=== PATIENT | female | born 1960 | race Caucasian/White ===

== ENCOUNTER 2021-07-20 19:32 | Emergency (ER) | payer OTHER, SELFPAY ==
--- NOTE | ~2021-07-20 | XR_ITS ---
EXAMINATION: LEFT HAND AND WRIST CLINICAL INFORMATION: Trauma. Pain. COMPARISON: None TECHNIQUE: 3 views FINDINGS: There is a fracture of the distal radius. This is an intra-articular fracture through the mid articular surface and extends into the metaphysis. There is slight displacement of fracture fragment. There is advanced degenerative joint disease of the first metacarpal carpal joint XR/XR hand wrist LT IMPRESSION: Intra-articular fracture of distal radius.
[2021-07-20 19:50] VITALS: BP 138/75; PULSE 87; RESP 20; TEMP 36.7; O2SAT 97; BMI 55.0
--- NOTE | 2021-07-20 22:35 | ED.EXTPRO ---
HPI - Extremity Problem General Chief complaint: Extremity Injury, Upper Stated complaint: ?wrist fracture Time Seen by Provider: 07/20/21 22:35 History of Present Illness HPI Narrative: Patient complains of left wrist pain after a fall, went to urgent care where x-ray showed a fracture and was told to go to the ER for splinting and referral to an orthopedist Patient denies any other injury no other complaints, no numbness weakness or tingling Related Data Previous Rx's Medication Instructions Recorded oxycodone 5 mg tablet 5 mg PO Q6H PRN #14 tab 07/20/21 Allergies Allergy/AdvReac Type Severity Reaction Status Date / Time No Known Allergies Allergy Verified 07/20/21 19:49 Review of Systems Review of Systems: Positive for left wrist pain Negatives are no dizziness no weakness no fainting no feeling faint no headache no head injury no neck pain no numbness weakness or tingling no chest pain or rib pain no back pain no muscle weakness no loss of sensation Yes all other systems are reviewed and are negative [facility] Past Medical History Source: nursing notes reviewed Medical History (Updated 07/21/21 @ 00:01 by Ro Allen) No active medical problems Social History Social History Advance Directives: No Advance Directives Information Provided: Yes Patient : No Physical Exam Vital Signs: Vital Signs: Last Vital Signs Temp 98.0 F 07/20/21 19:50 Pulse 87 07/20/21 19:50 Resp 20 07/20/21 19:50 BP 138/75 07/20/21 19:50 Pulse Ox 97 07/20/21 19:50 Body Mass Index 55.0 General appearance no acute distress Head is normocephalic atraumatic Neck supple nontender Respiratory no distress The back full range of motion Extremities the right wrist head dorsal tenderness and swelling no obvious deformity, skin was intact and neurovascular intact distal Other extremities normal Neuro no focal motor sensory deficits Course Course Course Narrative: X-ray of the left wrist showed a non intra-articular fracture of the distal radius with minimal displacement A volar splint was placed and I contacted the orthopedic physician shipping and receiving assistant who agreed the patient could be followed next week and patient was discharged Discharge Plan Discharge Clinical Impression: Fracture of wrist Patient Disposition: Home, Self-Care Additional Instructions: Follow with orthopedist for further evaluation best plan of care Keep the splint dry Return any time any worse condition or any concerns Prescriptions: New oxycodone 5 mg tablet 5 mg PO Q6H PRN (Reason: pain) Qty: 14 RF: 0 Referrals: Pacheco Jenkins MD [Physician] - 2 days (Wrist fracture) Tyrese Mitchell PA-C [Physician [employer]] - 2 days (Left wrist fracture) Interventions: ED Discharge Assessment Last Done: 07/20/21 23:27 Discharge Date/Time: 07/20/21 23:29
--- NOTE | 2021-07-20 23:26 | PC.NURSE ---
VOLAR SPLINT ORDER BY EVER HOLM. SPLINT PLACED TO LEFT WRIST CHECK BY EVER HOLM.
== END 2021-07-20 23:29 | disposition home or self-care (01) ==
PROVIDERS: Emergency Provider Emergency Medicine; PCP Internal Medicine
DX: S52.572A Other intraarticular fracture of lower end of left radius, initial encounter for closed fracture (principal); W19.XXXA Unspecified fall, initial encounter; Y93.9 Activity, unspecified; Y92.9 Unspecified place or not applicable; Y99.9 Unspecified external cause status
CPT/HCPCS: 29125; 73110; 73130; 99283; 99284

== ENCOUNTER 2021-07-25 05:59 | Outpatient (REF) | payer OTHER, SELFPAY ==
--- NOTE | ~2021-07-25 | XR_ITS ---
EXAMINATION: XR WRIST, LEFT CLINICAL INFORMATION: Pain. COMPARISON: Left hand and wrist radiographs dated 07/20/2021 TECHNIQUE: PA, lateral, and oblique views of the left wrist. FINDINGS: Redemonstration of a mildly displaced radial styloid fracture in unchanged anatomic alignment. No dislocation. Severe joint space narrowing with subchondral sclerosis and large marginal osteophytes redemonstrated at the 1st carpometacarpal joint. No new osseous erosion. No abnormal soft tissue calcification. XR/XR wrist LT min 3V IMPRESSION: Radial styloid fracture in unchanged anatomic alignment. Severe 1st carpometacarpal osteoarthritis.
== END 2021-07-25 06:00 | disposition home or self-care (01) ==
LOC: HO.HOSX 05:59
PROVIDERS: Visit Provider Physician Assistant
DX: S52.502A Unspecified fracture of the lower end of left radius, initial encounter for closed fracture (principal)
CPT/HCPCS: 29125; 73110; 99202

== ENCOUNTER 2021-08-01 12:06 | Day surgery (SDC) | payer OTHER, SELFPAY ==
[2021-08-01] VITALS (9 sets, daily range): BP systolic 102–143; BP diastolic 62–95; PULSE 69–85; RESP 15–18; TEMP 36.3–36.6; O2SAT 94–100; BMI 53.1
--- NOTE | ~2021-08-01 | FL_ITS ---
EXAMINATION: XR FLUOROSCOPY WITH IMAGES CLINICAL INFORMATION: Reduction distal radial fracture. COMPARISON: Radiographs left breast 07/25/2021, 07/20/2021 TECHNIQUE: Fluoroscopy performed by Dr. Yoanna Lema. Fluoroscopy time: 34 seconds DAP: 21.489 mGycm2 Images: 6 FINDINGS: Distal radial fracture is reduced with volar side plate and multiple screws. Fracture fragments are in near-anatomic alignment. The ulnar variance is near neutral. The hardware is intact. No dislocation. FL/FL guidance in OR IMPRESSION: Status post open reduction internal fixation distal radial fracture. Hardware intact. Near-anatomic alignment.
--- NOTE | 2021-08-01 14:40 | PC.NURSE ---
PATIENT BROUGHT OVER TO PACU AND REPORT GIVEN TO ITAGO HARRIS. PT REMAINS AWAKE, ALERT/ORIENTED X'S 3 WITHOUT COMPLAINT AT THIS TIME.
--- NOTE | 2021-08-01 16:25 | MHC.SHP ---
Pre-Procedural Eval Section A Date of Service: 08/01/21 The patient is an INPATIENT: No Changes since office visit: No Cold of Flu in the past 2 weeks, No New Medical Problems, No Changes in Medication and No Patient answered all questions The History & Physical has been completed within 30 days and I have reviewed it.: Yes Section B Chief Complaint: Fracture of lower end radius Allergies: Allergies Allergy/AdvReac Type Severity Reaction Status Date / Time No Known Allergies Allergy Verified 08/01/21 12:41 Plan I have reviewed the history and physical and performed a pertinent physical examination on my patient. No changes have occurred unless specified.
--- NOTE | 2021-08-01 16:26 | P.OP_ITS ---
Operative Note Operative Note Date of Service: 08/01/21 Narrative: Operative Note Narrative: Preop diagnosis: 1. Left intra-articular Distal radius fracture Postop diagnosis: Same Procedure: 1. Left intra-articular Distal radius fracture open reduction internal fixation, 2 part Surgeon: Yoanna Lema MD Anesthesia: Mac plus regional block Findings: Implants: A 3 hole Accu Med volar locking plate, with four 2.3 mm locking pegs/screws, and 3 3.5 mm cortical screws Tourniquet time: 41 minutes EBL: 5.0 ml Specimen: None Drains: None Complications: None Disposition: Brought to the recovery room in stable condition Plan: Follow-up in 10-14 days for wound check, suture removal and postop radiographs The patient will be placed in a volar wrist splint follow-up Encourage no lifting of anything heavier than a cell phone. Please encourage active and passive range of motion of the digits. Follow-up at 4-5 weeks postop for repeat radiographs. Indications: The patient is a 60 year old woman with left intra-articular distal radius fracture . The risks and benefits of operative treatment, including but not limited to risk of damage to blood vessels, nerves, tendons, infection, recurrence, persistent pain or numbness, incomplete resolution of preoperative symptoms, or need for further surgery were discussed with the patient and they wished to proceed with surgery. Procedure: Once consent was obtained patient was brought back to the operating suite and placed in the operating table in a supine position. . Perioperative antibiotics and anesthesia was administered by the anesthesia team. A tourniquet was applied to the proximal aspect of the left upper extremity and the limb was prepped and draped in a standard surgical fashion. The limb was elevated exsanguinated with Esmarch bandage and the tourniquet inflated to 250 mm of mercury for a total tourniquet time of 41minutes. The FluoroScan was used throughout the case to assess our reduction, and facilitate implant placement. I made an 8 cm longitudinal incision over the distal aspect of the flexor carpi radialis tendon. The incision was made through the skin to the subcutaneous tissue using a 15. Blade. Then carefully dissected down to flexor carpi radialis tendon she tenotomy scissors. The FCR tendon sheath was then incised longitudinally using tenotomy scissors under direct visualization. The FCR tendon was then retracted ulnarly. I then made a longitudinal incision in the volar forearm fascia through the floor of FCR tendon sheath using tenotomy scissors under direct visualization. I identified the interval between the radial artery and the flexor tendons. This interval was developed further with my index finger, releasing some of the muscular fibers of the flexor pollicis longus. A dull weatlander retractor was then placed. I then created an ulnarly based flap of the pronator quadratus by releasing the radial and distal edges using a 15. Blade. A English elevator was used to elevate the pronator quadratus from the volar surface of the distal radius. This then revealed to us our distal radius fracture. An open reduction was then performed on our distal radius fracture. To facilitate our reduction I needed to release the brachial radialis from the radial styloid and this was done by opening the tendon sheath and releasing the brachioradialis tendon at its insertion using tenotomy scissors under direct visualization. I then placed a short narrow 3 hole Accu Med volar locking plate on the volar surface of the distal radius. I placed a single K-wire through the distal aspect of the plate and into the distal radius. I then placed a 3.5 mm cortical screw through the oval hole by drilling bicortically and placing a 12 mm 3.5 mm cortical screw. This was assessed using fluoroscopic images. I was satisfied with our reduction and the placement of our plate. I then placed four 2.3 mm locking screws/pegs in the distal aspect of the plate and distal radius by 1st drilling bicortically with a 1.8 mm drill bit, measurin g with a depth gauge, and placing the appropriate length locking screws/pegs. The placement of our plate and screws was then assessed again using fluoroscopic images. Once satisfied with the placement of the volar locking plate and screws on the distal aspect of the distal radius, 2 additional 3.5 mm cortical screws to the proximal aspect of the plate and into the shaft of the radius. This was done by 1st drilling bicortically with a 2.8 mm drill bit, measuring with a depth gauge, and placing the appropriate length screw. Final radiographs were then obtained. The DRUJ was assessed and found to be stable on exam. I was satisfied with our reduction and placement of all implants. The wound was irrigated with normal saline. The pronator quadratus was reduced back over the volar locking plate using some 4-0 Vicryl suture material. The tourniquet was then deflated and hemostasis was obtained with a brief period of local pressure and bipolar and monopolar electrocautery. The subcutaneous layer was then reapproximated using some 4-0 Vicryl suture, and the skin edges were reapproximated using some 5 0 Prolene suture. The wound was then infiltrated with some 1% lidocaine with epinephrine postop pain control. A sterile dressing and a short dorsal splint allowing for active flexion and extension of the digits was applied. The patient appears to have tolerated the procedure well and with no complications. All digits were well vascularized conclusion of the case.
--- NOTE | 2021-08-01 16:57 | HO.ANESPROP2 ---
[facility] Active Problems Active Problems: All Active Problems (Updated 07/25/21 @ 11:22 by Tyrese Mitchell PA-C) Distal radius fracture, left (Acute) Past Medical History Medical History No active medical problems Family History Family history of problems with anesthesia: No Surgical History History of Problems with Anesthesia: No Social History Social History Patient Tobacco Use Status: Never used Tobacco Use of substances other than those prescribed or required for medical reasons: No Are you DNR?: No Advance Directives: No Advance Directives Information Provided: No Meds Allergies Allergy/AdvReac Type Severity Reaction Status Date / Time No Known Allergies Allergy Verified 08/01/21 12:41 Exam Exam Date and Time: August 01, 2021 1657 Height,Weight and Vital Signs: Height 5 ft 3 in Weight 136.078 kg Last Vital Signs Temp 97.3 F 08/01/21 12:59 Pulse 84 08/01/21 12:59 Resp 16 08/01/21 12:59 BP 143/74 H 08/01/21 12:59 Pulse Ox 98 08/01/21 12:59 Airway Mallampati Class: II TM Dist: >3cm Neck ROM: Full Assessment and Plan Assessment Anesthesia Assessment: Anesthesia Plan Discussed Final Anesthetic Review Family History of Problems with Anesthesia: No History of Problems with Anesthesia: No NPO: Yes ASA Class: III Final Preanesthetic Review: No Changes in Pt Med Stat, Meds/Allgs Chart Reviewed, Consent Obtained/Reviewed and Anes Risks/Benef Reviewed Patient Risk: Intermediate Procedure Risk: Low Assessment/Block/Sedation in SS: Assess/Block/Sedation-SS Anesthetic Plan Anesthetic Plan: GA Disposition: Standard PACU
[2021-08-01] MEDS: ondansetron HCL 4 MG/2 ML VIAL IVPUSH (18:27)
== END 2021-08-01 19:15 | disposition home or self-care (01) ==
PROVIDERS: PCP Internal Medicine; Visit Provider Orthopaedic Surgery
PROC: (CPT 25608; principal; 2021-08-01 13:50)
DX: S52.572A Other intraarticular fracture of lower end of left radius, initial encounter for closed fracture (principal); X58.XXXA Exposure to other specified factors, initial encounter; Y93.9 Activity, unspecified; Y92.9 Unspecified place or not applicable; Y99.8 Other external cause status
CPT/HCPCS: 25608; C1713; C1769; J0131; J0690; J1100; J1170; J2250; J2370; J2405; J2550; J3010

== ENCOUNTER 2021-08-13 11:10 | Outpatient (REF) | payer OTHER, SELFPAY ==
--- NOTE | ~2021-08-13 | XR_ITS ---
EXAMINATION: XR WRIST, LEFT CLINICAL INFORMATION: Left wrist pain. COMPARISON: 08/01/2021 and studies dating back to 07/20/2021 TECHNIQUE: PA, lateral, and oblique views of the left wrist. FINDINGS: There has been side plate and screw fixation of a nondisplaced intra-articular fracture of the distal left radius. Hardware appears intact. No new fracture or dislocation is seen. There is severe degenerative change of the 1st carpometacarpal joint with joint space narrowing and exuberant spurring with sclerosis. There also appears to be some narrowing of the triscaphe joint. XR/XR wrist LT min 3V IMPRESSION: Satisfactory appearance status post plate and side screw fixation of an intra-articular distal left radial fracture. Severe degenerative change 1st carpometacarpal joint.
== END 2021-08-13 11:11 | disposition home or self-care (01) ==
LOC: HO.HOSX 11:10
PROVIDERS: Visit Provider Orthopaedic Surgery
DX: M25.532 Pain in left wrist (principal)
CPT/HCPCS: 73110

== ENCOUNTER 2021-09-04 09:05 | Outpatient (REF) | payer OTHER, SELFPAY ==
--- NOTE | ~2021-09-04 | XR_ITS ---
EXAMINATION: XR WRIST, LEFT CLINICAL INFORMATION: Pain. Fracture. COMPARISON: Previous x-ray August 2021 TECHNIQUE: PA, lateral, and oblique views of the left wrist. FINDINGS: There is orthopedic hardware with plate and screws transfixing the left distal radius fracture. Orthopedic hardware appears unchanged. Distal radius fracture line is still seen. Alignment is unchanged. There is arthritis of the first CORRECTION joint. The bones are osteopenic. There is mild diffuse soft tissue swelling. XR/XR wrist LT min 3V IMPRESSION: ORIF of left distal radius fracture. No change from August 2021 exam.
== END 2021-09-04 09:06 | disposition home or self-care (01) ==
LOC: HO.HOSX 09:05
PROVIDERS: Visit Provider Orthopaedic Surgery
DX: S52.502D Unspecified fracture of the lower end of left radius, subsequent encounter for closed fracture with routine healing (principal)
CPT/HCPCS: 73110; 99212

== ENCOUNTER 2021-10-22 09:00 | Outpatient (RCR) | payer OTHER, SELFPAY ==
--- NOTE | 2021-10-08 11:19 | MHC.OT.OEV ---
[address] [phone] F: [phone] Occupational Therapy Evaluation Diagnosis: FX OF LOWER END OF LEFT RADIUS Date of Onset: 07/20/21 Date of Surgery: 08/01/21 Attending Provider: Yoanna Saravia Prescribed Treatment: EVAL AND TREAT History of Current Condition: REPORTS SHE WAS PULLING BRUSH/ BRANCHES OUT OF HER TRUCK AND FELL BACKWARDS. XRAY 07/25/21 Radial styloid fracture in unchanged anatomic alignment. Severe 1st carpometacarpal osteoarthritis. 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 REQUIRED TO LIFT ABOUT 30 POUNDS AT WORK. HOBBIES: TRAIL WALKING, HANGING OUT WITH FRIENDS AND FAMILY, SHOPPING Living Situation, Family and/or Social Support: LIVES WITH ADULT CHILDREN (22 AND 23) Current Level of Function and Occupation Self Care, Employment, Leisure: LIGHT DUTY AT WORK: ATTEMPTING TO USE RIGHT HAND MORE THAN LEFT WHILE AT WORK. OPENING JARS, HOLDING ITEMS DUE TO WEIGHT RESTRICTION, UNABLE TO CARRY POT OR LAUNDRY BASKET. IMPROVING ABILTY TO DO BUTTONS, ZIPPERS AND PULL UP PANTS. Sleep: OCCASIONALLY; INCONSISTENT WITH WEARING SPLINT AT NIGHT Driving: DIFFICULTIES TURNING THE STEERING WHEEL WITH LEFT HAND Vision: WEARS GLASSES Pain Assessment Pain Score: 2/10 Pain Scale Used: Numeric (0 - 10) Pain Location and Description: L THUMB 2/10 AT REST AND WITH ACTIVITY Aggravating Factors: RIPPING, PINCHING, LIFTING Alleviating Factors: NOT TAKING MEDICATION OR USING HEAT/ICE; WEARING SPLINT AT WORK Skin and Soft Tissue Assessment Skin and Soft Tissue: Atrophy Swelling Wound Scar Tissue Comments: HEALED LEFT VOLAR SURGICAL INCISION. SOME ATROPHY NOTED AT L THENAR EMINENCE. MILD WRIST EDEMA. DRYNESS L WRIST. Sensory Assessment Temperature: Light Touch: WFL Proprioception: Vibration: Comments: DENIES NUMBNESS OR TINGLING Edema Assessment Upper Extremity: Lower Extremity: Comments: CIRCUMFERENCE OF WRIST, DISTAL TO U.S.: LEFT 20.2 CM, RIGHT 18.8 CM Dexterity Assessment Dexterity: WFL Comments: FUNCTIONAL DEXTERITY TEST: LEFT 23 SECONDS; RIGHT 24 SECONDS Special Tests Comments: AROM(PROM) Strength Elbow Flexion: Extension: Pronation: Supination: L 60, R 70 Comments: Flexion: Extension: Pronation: Supination: Comments: Wrist Flexion: L 48, R 68 Extension: L 62, R 72 Ulnar Deviation: L 50, R 52 Radial Deviation: L 12, R 22 Comments: PAIN WITH ULNAR DEVIATION L WRIST Flexion: Extension: Ulnar Deviation: Radial Deviation: Comments: Thumb Thumb CMC Flexion: Thumb MCP Flexion: Thumb IP Flexion: Radial Abduction: Palmar Abduction: Buda (Kapandji 0-10): L 9/10 Comments: DISCOMFORT WITH L PALMAR ABD AND OPPOSITION Digits Index MCP: PIP: DIP: Long MCP: PIP: DIP: Ring MCP: PIP: DIP: Small MCP: PIP: DIP: Comments: Gross Grasp: L 18, R 45 Lateral Pinch: L 5, R 13 Two-Point Pinch: L 7, R 9 Three-Jaw Wayne: L 8, R 12 Comments: PAIN WITH L LATERAL PINCH Patient Education Primary Language: [place]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 Patient demonstrates Patient verbalizes Needs reinforcement Barriers to Learning: None Readiness for Learning: Accepting Who was educated? Patient Comments: Plan of Care Assessment: MAX PRESENTS [address] DUFFY TO HER NON DOMINANT LEFT WRIST. SHE REPORTS LOW PAIN AND C/O PAIN GREATEST AT HER LEFT THUMB. XRAYS REVEALED SEVERE 1ST CMC ARTHRITIS. SHE IS WEANING FROM HER PREFAB WRIST ORTHOSIS AND REPORTS ONLY WEARING AT WORK, IN PUBLIC AND OCCASIONALLY AT NIGHT. A 64% LIMITATION IS REPORTED PER THE QUICK DASH ASSESSMENT. SHE IS REPORTING MOST DIFFICULTIES WITH LIFTING, CARRYING AND PERFORMING IADLs. SHE WOULD BENEFIT FROM ONGOING SKILLED OT TO ADDRESS JOINT PROTECTION, STRENGTHENING, RANGE OF MOTION, SCAR MOBILIZATION AND IMPROVING ADLs AND IADLs. STG Duration: 2 WEEKS Short Term Goals: IND HEP IND JOINT PROTECTION AND ACTIVITY MODIFICATION IND SCAR MOBILIZATION L WRIST FLEX 55 DEGREES LTG Duration: 4 WEEKS Alf Goals: TOLERATE LIFTING >10 POUNDS WITH <2/10 PAIN QUICK DASH <50% L WRIST FLEX 60 DEGREES WEAN FROM ORTHOSIS R GRASP >30 POUNDS R LATERAL PINCH >8 POUNDS Frequency and Duration: The patient will be seen 2X/WEEK FOR 4 WEEKS Treatment Plan: Therapeutic Exercise Therapeutic Activity Home Exercise Program Splinting Neuro Re-ed Patient Education Desensitization/Sensory Re-ed Edema Control ADL Training Ultrasound NMES Paraffin Fluidotherapy MHP Cold Packs Joint Mobilization Soft Tissue Mobilization Kinesiotaping Electronically Signed By: JORGE ROSADO OTR/L Reviewed/agree with student documentation: N/A Therapist: Please sign and return to therapist, Thank you for your referral.
--- NOTE | 2021-11-09 13:00 | MHC.OT.DC ---
[address] [phone] F: [phone] Occupational Therapy Discharge Note Provider: Dr Lema Diagnosis: FX OF LOWER END OF LEFT RADIUS Date of Surgery: 08/01/21 Date of Evaluation: 10/08/21 Date of Discharge: 11/09/21 Treatments to Date: 5 Cancellations to Date: 1 No Shows to Date: 3 Discharge Status: Improved Function Independent with HEP Patient Elected to Stop Discharge Summary: Vandana is now 14 weels post-op left DRF ORIF. She has not attended OT over the past two weeks and has several no-shows, however on last visit she was doing very well. She had good carry over w/ ROM gains and good follow through w/ HEP. 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 I anticipate she is doing well w/ self management, we will discharge OT services at this time. Electronically Signed By: Aidee Rosenthal, OTR/L CHT Please Sign and return to therapist, thank you for your referral.
== END 2021-11-09 13:01 | disposition home or self-care (01) ==
LOC: HO.OT 09:00
PROVIDERS: Visit Provider Orthopaedic Surgery
DX: S52.502D Unspecified fracture of the lower end of left radius, subsequent encounter for closed fracture with routine healing (principal)
CPT/HCPCS: 97110; 97140; 97165